=== PATIENT | female | born 1980 | race Caucasian/White ===

== ENCOUNTER 2017-10-17 12:01 | Emergency (ER) | payer OTHER, BC ==
[~2017-10-17] VITALS: Ht 162.6 cm; Wt 83.0 kg
[~2017-10-17 12:01] MED LIST: BACTROBAN2 % EX; CEPHALEXIN500 MG OR; NAPROSYN500 MG OR; NO HOME MEDS
[2017-10-17] MEDS ORDERED: AUGMENTIN875TAB PO (13:36)
[2017-10-17 14:05] VITALS: BP 136/65
== END 2017-10-17 14:05 | disposition home or self-care (01) | DRG 605 ==
LOC: ED 12:01
DX: S61.451A Open bite of right hand, initial encounter (principal); W55.01XA Bitten by cat, initial encounter; Y93.F9 Activity, other caregiving; Y92.009 Unspecified place in unspecified non-institutional (private) residence as the place of occurrence of the external cause; Y99.0 Civilian activity done for income or pay

== ENCOUNTER 2018-02-13 06:18 | Day surgery (SDC) | payer BC ==
[~2018-02-13] VITALS: Ht 162.6 cm; Wt 81.6 kg
[~2018-02-13 06:18] MED LIST changes: +AUGMENTIN875TAB PO; +DEXILANT60 MG PO; +IBUPROFEN600 MG PO; +ZANTAC150 M1 PO
[2018-02-13 08:51] VITALS: BP 115/71
== END 2018-02-13 09:01 | disposition home or self-care (01) | DRG 392 ==
LOC: ENDO 06:18 → ORM 08:10 → ENDO 09:01 → ORM 14:45
PROVIDERS: ATTEND Internal Medicine Gastroenterology
PROC: 0DB48ZX Excision of Esophagogastric Junction, Via Natural or Artificial Opening Endoscopic, Diagnostic (ICD-10-PCS; principal; 2018-02-13)
DX: K21.9 Gastro-esophageal reflux disease without esophagitis (principal); R13.10 Dysphagia, unspecified; R11.2 Nausea with vomiting, unspecified; R63.4 Abnormal weight loss; R14.0 Abdominal distension (gaseous); K29.70 Gastritis, unspecified, without bleeding; Q40.8 Other specified congenital malformations of upper alimentary tract; K22.8 Other specified diseases of esophagus; Z79.899 Other long term (current) drug therapy; Z98.84 Bariatric surgery status